=== PATIENT | male | born 1945 | race Caucasian/White ===

== ENCOUNTER → 2018-11-12 | Outpatient (CLI) | payer MEDICARE, OTHER ==
[~2018-11-12] MED LIST: DIPH25CA83 PO; MULT-1085 PO; PANT-47 PO
== END | disposition home or self-care (01) ==
LOC: CARD DIAG 12:22
PROVIDERS: ATTEND Family Medicine
DX: I05.9 Rheumatic mitral valve disease, unspecified (principal)
CPT/HCPCS: 93306

== ENCOUNTER 2018-12-01 14:11 | Outpatient (CLI) | payer MEDICARE, OTHER ==
[~2018-12-01] VITALS: Ht 185.4 cm; Wt 130.2 kg
[2018-12-01 15:01] LABS: ABG BASE EXCESS -0.4 mmol/L (-2.0-3.0); ABG HCO3 23.1 mmol/L (22.0-26.0); ABG OXYGEN SATURATION 94.2 % (95-98); ABG PCO2 (T) 34.3 mmHg (35.0-48.0); ABG PH (T) 7.446 (7.350-7.450); ABG PO2 (T) 71.4 mmHg (83-108); ALLEN'S TEST Positive; FCOHb 0.6 % (0.5-1.5); FMetHb 0.1 % (0.3-1.12); FO2Hb 93.5 % (94-100); TOTAL HEMOGLOBIN 13.8 G/dl (14.0-18.0)
[2018-12-01] MEDS ORDERED: albuterol 2.5 MG/3 ML nebule NEB ONE (15:10)
== END 2018-12-01 23:59 | disposition home or self-care (01) ==
LOC: RT 14:11
PROVIDERS: ATTEND Family Medicine
DX: J44.9 Chronic obstructive pulmonary disease, unspecified (principal); Z87.891 Personal history of nicotine dependence; Z79.899 Other long term (current) drug therapy
CPT/HCPCS: 36600; 82803; 85018; 94060; 94727; 94729; 94760

== ENCOUNTER 2024-12-27 07:36 | Day surgery (SDC) | payer MEDICARE, OTHER ==
[~2024-12-27] VITALS: Ht 185.4 cm; Wt 126.4 kg
[2024-12-27] VITALS (8 sets, daily range): BP systolic 80–141; BP diastolic 38–79; PULSE 60–92; RESP 12–22; TEMP 98.8; O2SAT 91–95
[~2024-12-27 07:36] MED LIST changes: +ALBU18HF2; +ASPI-1265 PO; +ATOR20TA66 PO; +BUSP10TA3 PO; +CALC-1276 PO; +CARB1TAB36 PO; -DIPH25CA83 PO; +DULO60CA65 PO; +FERR-119 PO; +FINA5TAB11 PO; +Focus Factor PO; +GLUC1TAB75 PO; +HYDR50TA65 PO; +LOSA25TA41 PO; +OMEG-166 PO; +OMEP40CA21 PO; -PANT-47 PO; +PRE5T; +TRILOGY INH; +Tumeric PO; +mag citrate PO
[2024-12-27] MEDS ORDERED: propofol inj 20 ML IV ONE (08:47)
[2024-12-27] MEDS ORDERED: fentaNYL/PF 50MCG/1 ML 2ML syringe ONE (08:48)
[2024-12-27] MEDS ORDERED: simethicone 40mg/0.6ml oral drops 30ml ONE (08:55)
--- NOTE | 2024-12-28 11:29 | PATHOLOGY REPORT ---
[facility] [address] [place] [address] SURGICAL PATHOLOGY REPORT CaseNumber: [id number] Surgeon:Corina Hartman M.D. CLINICAL INFORMATION CLINICAL INFORMATION: Esophageal reflux, H/O Barretts esophagus. DIAGNOSIS DIAGNOSIS: A.STOMACH, ANTRUM; BIOPSY - INACTIVE CHRONIC GASTRITIS, MILD. - NEGATIVE FOR H. PYLORI. - FOCAL INTESTINAL METAPLASIA IS PRESENT. DIAGNOSIS: B.ESOPHAGUS, DISTAL; BIOPSY - MINIMALLY INFLAMED GASTRIC MUCOSA WITH INTESTINAL METAPLASIA. - NEGATIVE FOR DYSPLASIA. MICROSCOPIC DESCRIPTION A. STOMACH, ANTRUM MICROSCOPIC DESCRIPTION: A single H&E slide with multiple levels of gastric mucosa is reviewed. The gastric biopsy shows mild chronic gastritis. The lamina propria is expanded by lymphocytes and plasma cells; no neutrophilic (active) inflammation is identified. I see no evidence of dysplasia or neopla kelly. Focal intestinal metaplasia is present. No H pylori organisms are identified. B. ESOPHAGUS, DISTAL MICROSCOPIC DESCRIPTION: Reviewed is 1 H&E stained slide showing multiple levels of minimally inflame d gastric mucosa with patchy intestinal metaplasia. The lamina propria is mildly expanded by lymphop lasmacytic inflammation. I do not see evidence for dysplasia. No squamous mucosa is seen. GROSS DESCRIPTION A. STOMACH, ANTRUM GROSS DESCRIPTION: Received in a container of formalin labeled with the patient's name, number, and " antrum BX" is a 0.3 cm piece of paz tissue. The specimen is entirely submitted as A1. The time at [facility] the specimen was removed was 0907. The time at which the specimen was placed in formalin was 0909. B. ESOPHAGUS, DISTAL GROSS DESCRIPTION: Received in a container of formalin labeled with the patient's name, number, and " distal esophagus BX" are 2 pieces of paz tissue 0.2 and 0.3 cm. The specimen is entirely submitted as B1. The time at which the specimen was removed was 0908. The time at which the specimen was placed i n formalin was 0909. Electronically signed by: Keith Donaldson, 12/28/2024 10:52:00 AM
== END 2024-12-27 10:02 | disposition home or self-care (01) ==
LOC: GI LAB 07:36
PROVIDERS: ATTEND Internal Medicine Gastroenterology
DX: K21.9 Gastro-esophageal reflux disease without esophagitis (principal); K22.70 Barrett's esophagus without dysplasia; K29.51 Unspecified chronic gastritis with bleeding; K44.9 Diaphragmatic hernia without obstruction or gangrene; G47.30 Sleep apnea, unspecified; I10 Essential (primary) hypertension; J44.9 Chronic obstructive pulmonary disease, unspecified; Z79.899 Other long term (current) drug therapy; Z98.890 Other specified postprocedural states
CPT/HCPCS: 43239; J2704; J3010; J7030; Z7512; 88305